=== PATIENT | male | born 1965 | race Caucasian/White ===

== ENCOUNTER 2021-02-07 21:14 | Emergency (ER) | payer OTHER, MEDICARE ==
[2021-02-07 22:14] LABS: BASOPHIL 0.4 % (0-2); EOSINOPHIL 0.4 % (0-5); HCT 44.7 % (42.0-52.0); HGB 15.4 g/dl (13.2-18.0); LYMPHOCYTE 10.2 % (15-48); MCH 30.7 pg (25.0-31.0); MCHC 34.5 g/dL (32.0-36.0); MONOCYTE 6.5 % (0-12); MPV 9.6 fL (6.0-9.5); NEUTROPHIL 81.8 % (41-80); NRBC 0; PLT 183 K/uL (150-400); RBC 5.02 M/uL (4.70-6.00); WBC 5.5 K/uL (4.0-10.5)
[2021-02-07 22:22] LABS: ALBUMIN 3.3 g/dL (3.4-5.0); BILIRUBIN - TOTAL 0.8 mg/dL (0.2-1.0); BUN/CREAT RATIO (CALC) 12.6 RATIO; CREATININE 1.11 mg/dL (0.67-1.17); GLOBULIN (CALCULATION) 3.6 g/dL; POTASSIUM 3.8 mmol/L (3.5-5.1); TOTAL PROTEIN 6.9 g/dL (6.4-8.2)
[2021-02-07 22:30] LABS: BILIRUBIN 2+ mg/dL (NEGATIVE); BLOOD 3+ Ery/uL (NEGATIVE); GLUCOSE (U) NORMAL (NORMAL); LEUKOCYTES TRACE Leu/uL (NEGATIVE); NITRITE POSITIVE (NEGATIVE); PROTEIN 3+ mg/dL (NEGATIVE); SPECIFIC GRAVITY >=1.030 (1.001-1.030); pH 5.5 (5.0-9.0)
[2021-02-07 22:31] LABS: COLOR AMBER (YELLOW)
[2021-02-07 22:32] LABS: LACTIC ACID 0.9 mmol/L (0.4-1.9)
[2021-02-07 22:32] LABS: CLARITY CLOUDY (CLEAR)
[2021-02-07 22:37] LABS: URINARY RBC 20-50; URINARY WBC TNTC
[2021-02-07 22:38] LABS: MUCOUS TRACE; SQUAMOUS EPITHELIAL CELLS RARE
[2021-02-07 22:39] LABS: BACTERIA 2+; CALCIUM OXALATE CRYSTALS TRACE
[2021-02-07 23:06] LABS: CORONAVIRUS 2019 SARS-COV-2 NEGATIVE (NEGATIVE); INFLUENZA A NAA NEGATIVE (NEGATIVE)
[2021-02-08] MEDS ORDERED: BACTRIM DS TAB1 EACH PO (01:49)
[2021-02-08] MEDS ORDERED: ONDANSETRON ODT4 MG SL (01:49)
== END 2021-02-08 02:09 | disposition home or self-care (01) ==
LOC: FER 21:14
PROVIDERS: Emergency Medicine Emergency Medical Services
DX: N30.00 Acute cystitis without hematuria (principal); N20.0 Calculus of kidney; I10 Essential (primary) hypertension; R60.0 Localized edema; Z79.899 Other long term (current) drug therapy; Z88.0 Allergy status to penicillin; Z88.5 Allergy status to narcotic agent; Z87.442 Personal history of urinary calculi; Z86.718 Personal history of other venous thrombosis and embolism; Z20.822 Contact with and (suspected) exposure to COVID-19
CPT/HCPCS: 36415; 71045; 80053; 81001; 83605; 84145; 84484; 85025; 87040; 87088; 87186; 93005; J0696; J1885; J2060; J7030; U0002